=== PATIENT | female | born 1995 | race Two or more races ===

== ENCOUNTER 2017-07-11 01:26 | Emergency (ER) | payer MEDICAID ==
[~2017-07-11] VITALS: Ht 152.4 cm; Wt 65.0 kg
[2017-07-11] MEDS ORDERED: ACETAMINOPHEN 325MG TABLET PO ONE (04:00)
[2017-07-11 04:20] VITALS: BP 117/89
== END 2017-07-11 04:21 | disposition home or self-care (01) ==
LOC: ER 01:26
DX: H60.91 Unspecified otitis externa, right ear (principal); F17.200 Nicotine dependence, unspecified, uncomplicated
CPT/HCPCS: 99283

== ENCOUNTER 2018-04-04 23:39 | Emergency (ER) | payer MEDICAID ==
[~2018-04-04] VITALS: Ht 149.9 cm; Wt 69.0 kg
[2018-04-05 04:53] VITALS: BP 125/87
== END 2018-04-05 05:04 | disposition home or self-care (01) ==
LOC: ER 23:39
DX: M54.2 Cervicalgia (principal); M54.5 Low back pain; F12.10 Cannabis abuse, uncomplicated; Z87.891 Personal history of nicotine dependence
CPT/HCPCS: 81025; 99283